=== PATIENT | female | born 1980 | race Caucasian/White ===

== ENCOUNTER → 2020-04-06 15:28 | Outpatient (CLI) | payer BC, SELFPAY ==
--- NOTE | ~2020-04-06 | MM_ITS ---
EXAMINATION: MM scrn jeanine implant BI w leslye HISTORY: Screening mammogram TECHNIQUE: Craniocaudal and mediolateral oblique 3-D tomosynthesis images with implant displacement a nd synthetic 2-D images were generated. Craniocaudal and mediolateral oblique views of the breasts wi thout implant displacement were obtained using full field digital mammography. CAD analysis was submi tted and interpreted. COMPARISON: None, baseline BREAST PARENCHYMAL COMPOSITION: The breasts are heterogeneously dense, which may obscure small masses . FINDINGS: There is no evidence of suspicious mass, calcification, or architectural distortion to sugg est malignancy in either breast. IMPRESSION: 1. No mammographic evidence of malignancy. 2. Recommend routine screening mammography in one year. BI-RADS Category 1: Negative Reviewed, dictated and finalized at location A. 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
== END ==
PROVIDERS: Visit Provider Nurse Practitioner
DX: Z12.31 Encounter for screening mammogram for malignant neoplasm of breast (principal)
CPT/HCPCS: 77063; 77067

== ENCOUNTER → 2022-01-29 12:49 | Outpatient (CLI) | payer BC, SELFPAY ==
--- NOTE | ~2022-01-29 | US_ITS ---
EXAMINATION: US pelvic complete DATE: 01/29/2022 13:09 INDICATION: Menorrhagia Comparison:07/30/2006 TECHNIQUE: Multiple transabdominal sonographic images of the pelvis performed. FINDINGS: The uterus measures 8.9 x 4.8 x 5.9 cm. There is a small hypoechoic mass of the uterus erin uring 1.3 cm, compatible with fibroid. The endometrial complex measures 4 mm. The right ovary measures 4.3 x 1.7 x 1.9 cm and the left ovary measures 2.7 x 2.1 x 3 cm. There is a left ovarian cyst measuring 2.1 cm. Normal doppler signal in both ovaries. There is no free fluid in the pelvis. There are no abnormal masses seen on either side. IMPRESSION: 1. Left ovarian cyst measuring 2.1 cm. 2: Small uterine fibroid posterior aspect of the myometrium measuring 1.3 cm. Reviewed, dictated and finalized at location A.
== END ==
PROVIDERS: PCP Nurse Practitioner; Visit Provider Obstetrics & Gynecology Gynecology
DX: N93.8 Other specified abnormal uterine and vaginal bleeding (principal); N83.202 Unspecified ovarian cyst, left side; D25.9 Leiomyoma of uterus, unspecified
CPT/HCPCS: 76856

== ENCOUNTER → 2022-04-13 07:58 | Outpatient (CLI) | payer BC, SELFPAY ==
--- NOTE | ~2022-04-13 | MM_ITS ---
EXAMINATION: MM scrn jeanine implant BI w leslye HISTORY: Screening mammogram TECHNIQUE: Craniocaudal and mediolateral oblique 3-D tomosynthesis images with implant displacement a nd synthetic 2-D images were generated. Craniocaudal and mediolateral oblique views of the breasts wi thout implant displacement were obtained using full field digital mammography. CAD analysis was submi tted and interpreted. COMPARISON: 04/06/2020 bilateral implant screening mammogram BREAST PARENCHYMAL COMPOSITION: The breasts are heterogeneously dense, which may obscure small masses . FINDINGS: Status post bilateral augmentation mammoplasty. There is no evidence of suspicious mass, ca lcification, or architectural distortion to suggest malignancy in either breast. There has been no garcia spicious interval change. IMPRESSION: 1. No mammographic evidence of malignancy. 2. Recommend routine screening mammography in one year. BI-RADS Category 1: Negative Reviewed, dictated and finalized at location A. 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
== END ==
PROVIDERS: PCP Nurse Practitioner; Visit Provider Obstetrics & Gynecology Gynecology
DX: Z12.31 Encounter for screening mammogram for malignant neoplasm of breast (principal)
CPT/HCPCS: 77063; 77067

== ENCOUNTER 2022-05-27 01:16 | Day surgery (SDC) | payer BC, SELFPAY ==
[2022-05-15 15:00] VITALS: BMI 19.8
--- NOTE | 2022-05-15 15:04 | PC.NURSE ---
Report to the Outpatient Waiting Room, entrance under the green pavilion located off [facility], at time 1200 on date 05/27/22. Planned Procedure Time: 1400. Time changes happen often and if your time is changed the preop area will call you the afternoon before. - You and your visitor will be asked to self-screen and do not enter if you have any COVID symptoms. - Only one visitor is requested with a max of two and NO children visitors are allowed at this time. - The patient visitor may be requested to leave or wait in car when not with patient due to distancing restrictions. - A mask is optional within the hospital at this time. Patients may have clear liquids (water, carbonated beverages, clear teas, apple juice) until 3 hours prior to surgery with a maximum of 20 ounces. - No food from midnight until time of surgery Take the following medications with a SIP of water the morning of surgery: N/A DO NOT STOP ANY OF YOUR OTHER PRESCRIPTION MEDICATIONS PRIOR TO SURGERY EXCEPT THE FOLLOWING Medications to discontinue per physician: N/A Date to take last dose: N/A Please no make-up, nail uzbek, hairspray, perfume, deodorant, or body powder the day of surgery. No jewelry (including any body piercings) or valuables the day of surgery, leave them at home. Please take a shower or bath the night before, or the morning of, surgery with an antibacterial soap. Wear comfortable, loose fitting clothing. - Jewelry must be removed prior to entering the operating room. Rings and piercings that are not removed may be cut off. - The hospital will not accept responsibility for valuables. - Please leave all valuables, including medications, at home the day of surgery. If you are going home after surgery, a licensed line driver must drive you home. - NO public transportation without another adult if you receive anesthesia. - We recommend that an adult stay with you for 24 hours following discharge. - We also recommend that you do not drive, make important decision, drink alcoholic beverages, or take any drugs that were not prescribed by your health care provider for at least 24 hours after your discharge time. Follow any additional instructions given to you from your surgeon. If you or anyone in your household have experienced Covid symptoms in the past week, please notify your surgeon or the nurse liaison at the phone number below for possible testing. Telephone instructions given to PT - ABIODUN TOTH and asked if any additional questions and then verbalized understanding. Patient advised to call surgeon office or pre surgery nurse liaison [phone] if any additional questions.
--- NOTE | 2022-05-27 10:11 | WPDHPUPDATE1 ---
History and Physical Update Update Date/Time: 05/27/22 10:11 History and Physical has been reviewed, including an updated exam of the patient. There are NO changes in the patient's condition. Risks, benefits, and alternatives have been discussed and questions answered. Patient agrees to proceed with procedure.
--- NOTE | 2022-05-27 10:11 | PM.HPGS ---
History of Present Illness History of Present Illness Consent: Risks, benefits, and alternatives have been discussed and questions answered. Patient agrees to proceed with procedure. Chief complaint: Menorrhagia, Fibroids Narrative: Angelique Carbone is a 42 year old female irregular and heavy cycles. Was recommended to undergo D&C hysteroscopy. Risks of infection, bleeding, perforation, fluid imbalance, and possible pathology are reviewed. The patient is rescheduled her procedure 4 times and presents today for hysteroscopy D&C. Review of Systems Review of Systems: not repeated day of surgery; patient states no changes in status PMFSH Past Medical History Medical History (Updated 05/27/22 @ 10:18 by Sierra Molina MD) (normal spontaneous vaginal delivery) x2 Surgical History Surgical History (Updated 05/27/22 @ 10:13 by Sierra Molina MD) History of breast augmentation History of left breast biopsy History of mandibular surgery Social History Social History Smoking status: Never smoker Alcohol intake: current Drinks per week: 2 Substance use: never Substance use type: does not use Living arrangements: with family Additional living arrangements comments: CHILDREN Spiritual care concerns: No Meds Home Medications and Allergies Home Medications Medication Instructions Recorded Confirmed Type No Home Medications 05/15/22 05/15/22 History Allergies Allergy/AdvReac Type Severity Reaction Status Date / Time No Known Allergies Allergy Unverified 05/15/22 14:59 Exam Const: General: healthy appearing and alert Orientation/consciousness: patient oriented x3 Resp: Effort & Inspection: normal respiratory effort GI: GI Palp: Yes Soft to palpation, No Tenderness to palpation present (GI) and No Palpable mass present : External Female Exam: normal external appearance Speculum Exam - Vagina: normal appearance of the vagina and normal vaginal discharge Speculum Exam - Cervix: normal appearance of the cervix Bimanual exam- vagina & uterus: uterine size normal and consistency normal Bimanual Exam- Adnexa, other: normal adnexae and No adnexal tenderness Neuro: General: patient oriented x3 Assessment and Plan Assessment and plan (1) Menorrhagia: Code(s): N92.0 - Excessive and frequent menstruation with regular cycle Status: Acute Assessment and Plan: plan to proceed with D&C hysteroscopy
[2022-05-27 11:27] VITALS: BP 105/59; PULSE 69; RESP 20; TEMP 36.9; O2SAT 100
[2022-05-27] MEDS: ACETAMINOPHEN 500 MG TABLET 1000 MG PO (12:15)
[2022-05-27] MEDS: LACTATED RINGERS 1,000 ML 30 ML IV CONT (12:20)
--- NOTE | 2022-05-27 12:27 | P.PNAN_ITS ---
Anes - Initial Pre Proc Eval Procedure: Operation Date: 05/27/22 14:00 Proposed Procedures p Hysteroscopy Dilation and Curettage - Sierra Molina MD Date/Time: 05/27/22 12:27 Surgeon: Sierra Molina MD Pre Op Diagnosis: Menorrhagia, Fibroids Patient Data Age: 42 Gender: F Height: 1.73 m Weight: 59 kg Allergies Allergy/AdvReac Type Severity Reaction Status Date / Time No Known Allergies Allergy Unverified 05/27/22 12:15 Home Medications Medication Instructions Recorded Confirmed Type No Home Medications 05/15/22 05/27/22 History Patient hx anesthesia problems: none Family hx anesthesia problems: none Results Review: All pre-operative results and documents have been reviewed as part of the pre- operative evaluation. PMFSH Past Medical History Medical History (normal spontaneous vaginal delivery) x2 Surgical History Surgical History History of breast augmentation History of left breast biopsy History of mandibular surgery Social History Social History Smoking status: Never smoker Alcohol intake: current Drinks per week: 2 Substance use: never Substance use type: does not use Living arrangements: with family Additional living arrangements comments: CHILDREN Spiritual care concerns: No Anes - Eval Final PreProcedure Day of Procedure 05/27/22 12:27 Patient weight: normal Heart: regular rate and rhythm Lungs: clear to auscultation Airway: Mallampati scale class II Neurological: alert and oriented Last oral intake: >/= 8 hours ASA classification: I Emergent: no Anesthetic plan: proceed Anesthesia type and monitoring: general GIVS and standard monitoring Results Review: All pre-operative results and documents have been reviewed as part of the pre- operative evaluation. Informed Consent: The patient's anesthetic plan and its attendant risks and benefits were discussed with the patient/family/POA. Questions were solicited and answers provided to the satisfaction of the patient/family/POA.
[2022-05-27] MEDS: LIDOCAINE HCL 1% PF 30 ML VIAL 10 ML INFILTRATE (13:33)
[2022-05-27 13:40] VITALS: BP 98/61; PULSE 70; RESP 14; O2SAT 100
--- NOTE | 2022-05-27 13:41 | P.OP_ITS ---
Procedure Note - Detailed Date of Procedure 05/27/22 Pre-op Diagnosis Menorrhagia, Fibroids Post-op Diagnosis Same Procedure Performed D&C hysteroscopy Surgeon Sierra Molina MD Anesthesia MAC and Local Findings internal cervix is stenotic; uterus sounds to 8cm and appears grossly normal Description of Procedure The patient was taken to the operating room and placed under anesthesia in the dorsal lithotomy position. She was prepped and draped in the usual sterile fashion. [place] speculum was placed in the vagina and the cervix was grasped on the anterior lip with a tenaculum. Cervix is injected in each quadrant with 1% lidocaine. The sound is placed and internal cervical stenosis is noted. The for 5 Hegar dilator is able to pass and the cervix was dilated to a 6 Hegar. The hysteroscope was placed with the above-stated findings. Hysteroscope was removed. The small sharp curette is used to curette the endometrium until a good uterine cry was noted in all areas. All instruments are removed and the patient awakened from anesthesia and taken to recovery in stable condition. Sponge, needle, and instrument counts are correct per the OR staff. Estimated Blood Loss 5 Drains No Packing No Pathology Yes ( Endometrial curettings) Complications No immediate complications Condition Stable Disposition PACU
[2022-05-27 14:10] VITALS: BP 93/61; PULSE 63; RESP 14
[2022-05-27 14:25] VITALS: BP 105/69; PULSE 60; RESP 14
== END 2022-05-27 14:31 | disposition home or self-care (01) ==
PROVIDERS: PCP Nurse Practitioner; Visit Provider Obstetrics & Gynecology Gynecology
PROC: 0U5B8ZZ Destruction of Endometrium, Via Natural or Artificial Opening Endoscopic (ICD-10-PCS; CPT 58563; principal; 2022-05-27 14:00)
DX: N92.0 Excessive and frequent menstruation with regular cycle (principal)
CPT/HCPCS: 58558; 88305; A9270; J2250; J2405; J2704; J3010; J7120

== ENCOUNTER 2023-07-16 09:06 | Emergency (ER) | payer BC, SELFPAY ==
[2023-07-16 09:20] VITALS: BP 94/64; PULSE 86; RESP 16; TEMP 37.1; O2SAT 100
[2023-07-16 09:21] VITALS: BP 94/64; PULSE 86; RESP 16; TEMP 37.1; O2SAT 100
--- NOTE | 2023-07-16 09:36 | ED.URI ---
HPI - URI/Sore Throat General Chief Complaint: Upper Respiratory Infection Stated Complaint: Sore Throat Time Seen by Provider: 07/16/23 09:30 Source: patient and RN notes reviewed Mode of arrival: ambulatory Limitations: no limitations History of Present Illness HPI Narrative: Patient presents today complaining of a sore throat since yesterday. Denies any additional symptoms to include congestion, cough, fever, ear pain. Pain increases with swallowing. Currently rates her pain 3/10 and has been using some salt water gargles without much relief. No [id number] medication use prior to arrival. Patient did have so exposure to strep throat within her home recently and wanted to get checked. Related Data Home Medications Medication Instructions Recorded Confirmed No Home Medications 05/15/22 07/16/23 Allergies Allergy/AdvReac Type Severity Reaction Status Date / Time No Known Allergies Allergy Verified 07/16/23 09:10 Review of Systems Review of Systems: CONSTITUTIONAL: Denies body aches, fever, chills, or sweats. EYES: Denies visual changes, redness, or discharge. ENT: Denies rhinorrhea, congestion or otalgia.+ sore throat CARDIOVASCULAR: Denies chest pain, palpitations, or edema. RESPIRATORY: Denies cough or dyspnea. GASTROINTESTINAL: Denies abdominal pain, nausea, vomiting, or diarrhea. GENITOURINARY: Denies dysuria or hematuria. SKIN: Denies rash, itching, or wounds. MUSCULOSKELETAL: Denies back pain, joint pain, or myalgia. NEUROLOGIC: Denies headache, numbness, tingling, or weakness. PSYCH: Denies depression or anxiety. 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 Please see nursing chart for further information. There is no relevant family history pertinent to the presenting complaint Exam Narrative: GENERAL: Well-appearing, well-nourished, and in no acute distress. HEAD: Normocephalic, atraumatic. EYES: EOMI. No redness or drainage. Conjunctivae normal. ENT: Mucous membranes pink and moist. Nares clear. No rhinorrhea. TMs normal bilaterally. Throat mildly erythematous without edema or exudate. Uvula midline. NECK: Normal AROM. Supple. No lymphadenopathy. CHEST: No respiratory distress. Clear to auscultation. HEART: Regular rate and rhythm. No murmur appreciated. EXTREMITIES: Normal range of motion. No edema. SKIN: Warm, dry, no rash. Capillary refill normal. Normal skin turgor. NEURO: No focal deficits. Alert and oriented x3. Gait steady. PSYCH: Normal affect. No signs of depression or anxiety. Course Course Level of Care: Express Care Visit Vital Signs Vital signs: Vital Signs Temperature 98.7 F 07/16/23 09:20 Pulse Rate 86 07/16/23 09:20 Respiratory Rate 16 07/16/23 09:20 Blood Pressure 94/64 L 07/16/23 09:20 Pulse Oximetry 100 07/16/23 09:20 Oxygen Delivery Room Air 07/16/23 09:20 Temperature 98.7 F 07/16/23 09:21 Pulse Rate 86 07/16/23 09:21 Respiratory Rate 16 07/16/23 09:21 Blood
== END 2023-07-16 09:40 | disposition home or self-care (01) ==
PROVIDERS: Emergency Provider Nurse Practitioner; PCP Nurse Practitioner
DX: J02.9 Acute pharyngitis, unspecified (principal)
CPT/HCPCS: 87081; 87880; 99213; G0463

== ENCOUNTER 2023-09-01 07:45 | Outpatient (CLI) | payer BC, SELFPAY ==
--- NOTE | ~2023-09-01 | MMUS_ITS ---
EXAMINATION: MM diag ejanine implant BI w leslye, US breast BI complete HISTORY: Left axillary intermittent lump and numbness for 6 weeks TECHNIQUE: Implant displaced MLO, MLO and CC 3-D tomosynthesis images and 2-D synthetic reconstructio ns of both were performed and synthetic 2-D images were generated. CAD analysis was submitted and int erpreted. High resolution complete bilateral breast ultrasound examination could all 4 quadrants and subareolar area of each breast and left axillary breast ultrasound was performed. COMPARISON: 04/13/2022, 04/06/2020 bilateral implant screening mammogram examinations BREAST PARENCHYMAL COMPOSITION: The breasts are heterogeneously dense, which may obscure small masses . FINDINGS: MAMMOGRAPHIC FINDINGS: Status post bilateral augmentation mammoplasty. No suspicious breast mass or axillary mass is evident on either side. Heterogeneously dense fibroglan dular stroma however may obscure masses; bilateral complete breast ultrasound examination was perform ed, in addition to left axillary ultrasound considering the clinical complaint. No malignant calcification, architectural distortion, skin thickening or retraction of either breast is noted. ULTRASOUND: No suspicious mass lesion or shadowing of either breast is detected. Right breast: 10:00 8 cm from nipple: Well-circumscribed hypoechoic 2.5 x 9.4 x 8.2 mm solid lesion without loom inspector ior shadowing or internal vascularity, benign in appearance Left breast: 1:00 4 cm from nipple: There are well-circumscribed oval 2.9 x 5.6 x 6.7 mm hypoechoic solid lesion w ithout internal vascularity or posterior shadowing, benign in appearance Left axilla: Benign-appearing approximately 5.5 x 9.2 x 6.9 mm lymph node. IMPRESSION: 1. Benign findings 2. Routine mammographic screening is recommended BI-RADS Category 2: Benign finding(s). Reviewed, dictated and finalized at location A. IMPRESSION: 1. Benign findings 2. Routine mammographic screening is recommended BI-RADS Category 2: Benign finding(s).
== END 2023-09-01 07:46 ==
LOC: MICIMG 07:47
PROVIDERS: PCP Nurse Practitioner; Visit Provider Nurse Practitioner
DX: N64.4 Mastodynia (principal)
CPT/HCPCS: 76641; 77062; 77066; G0279